=== PATIENT | male | born 1960 | race Caucasian/White ===

== ENCOUNTER 2020-02-21 10:09 | Inpatient (IN) | payer BC ==
[2020-02-21] MEDS ORDERED: Propofol 1,000 MG/100 ML VIAL IV ONE (10:19)
[2020-02-21 10:30] LABS: #Lymphocytes 1.4 thou/uL (1.20-3.40); #Neutrophils 7.8 thou/uL (1.40-6.50); %Basophils 0.2 % (0.0-1.0); %Eosinophils 0.2 % (0.0-10.0); %Lymphocytes 13.6 % (21.0-51.0); %Monocytes 9.8 % (0.0-10.0); %Neutrophils 76.2 % (42.0-75.0); Hemoglobin 14.1 g/dL (14.0-18.0); INR-International Normal Ratio 1.1; Mean Corpuscular HGB CONC 32.3 g/dL (32.0-36.0); Mean Corpuscular Hemoglobin 33.1 pg (27.0-31.0); Mean Platelet Volume 6.7 fL (7.4-10.4); Platelet Count 205 thou/uL (130-400); Prothrombin Time 14.2 sec (12.0-14.7); RBC Distribution Width 11.6 % (11.5-14.5); Red Blood Cell (RBC) Count 4.27 mill/uL (4.70-6.10); White Blood Cell (WBC) Count 10.2 thou/uL (4.8-10.8)
[2020-02-21] MEDS ORDERED: Multivitamins, Adult 10 ML, Thiamine HCl 100 MG, Folic Acid 1 MG in Dextrose 5 %-0.45 %... IV SCH (10:30)
[2020-02-21] MEDS ORDERED: fentaNYL Citrate/PF 2,000 MCG in Sodium Chloride 0.9% 60 ML IV SCH ×2 (10:30→12:15)
[2020-02-21 10:48] LABS: ALT (SGPT) 25 U/L (8-55); AST (SGOT) 99 U/L (5-34); Acetaminophen Less than 6.0 mcg/mL (10.0-30.0); Albumin 4.5 g/dL (3.5-5.0); Alcohol 26 mg/dL (Less than 10); Alkaline Phosphatase 104 U/L (40-110); Anion Gap 35 mmol/L (10-20); BUN (Urea Nitrogen) 11 mg/dL (8.4-25.7); Bilirubin, Total 1.1 mg/dL (0.2-1.2); Calc. Creatinine Clearance 0 mL/min (70-130); Calcium 9.4 mg/dL (7.8-10.44); Carbon Dioxide 11 mmol/L (22-29); Chloride 103 mmol/L (98-107); Globulin 3.4 g/dL (2.4-3.5); Potassium 3.6 mmol/L (3.5-5.1); Protein, Total 7.9 g/dL (6.0-8.3); Salicylate Less than 8.0 mg/dL (15.0-30.0); Sodium 145 mmol/L (136-145)
[2020-02-21 10:50] LABS: Actual Bicarbonate (HCO3a) 11.4 mEq/L (22-28); CO2 Tension 39.7 mmHg (35.0-45.0); Calcium, Ionized (arterial) 1.17 mmol/L (1.12-1.30); Carboxyhemoglobin (COHb) 0.5 gm% (0.0-3.0); Hemoglobin (Hb) 14.1 g/dL (14.0-18.0); O2 Tension (PaO2), arterial 195.5 mmHg (> 80.0); Potassium - ABG Lab 4.09 mmol/L (3.70-5.30)
--- NOTE | 2020-02-21 10:50 | RAD ---
EXAM: CHEST ONE VIEW HISTORY: Post seizure and fall with laceration to head. Patient intubated. COMPARISON: None FINDINGS: Endotracheal tube is noted in place with the tip overlying the T2-3 level and well above the level of the yao. Nasogastric tube is noted in place which courses into the abdomen, the tip is not imaged. The cardiac silhouette and pulmonary vasculature are within normal limits. Calcified granulom a seen in the right midlung zone. Lungs are otherwise clear without pneumothorax or pleural effusion. Osseous structures have a normal appearance, and no fracture is appreciated. There does benny ear to be a remote left lateral rib fracture involving the left sixth rib. IMPRESSION: 1. Endotracheal tube and nasogastric tubes in place. 2. No acute cardiopulmonary process.
[2020-02-21 10:51] LABS: Glucose 159 mg/dL (70-105)
[2020-02-21 10:52] LABS: ALV-art Gradient 111.375 mmHg (0-20); Puncture Site LRA; pH, Arterial 7.08 (7.35-7.45)
[2020-02-21] MEDS ORDERED: Sodium Bicarb 50 MEQ/50 ML Abboject 8.4% SYRINGE ONE ×2 (11:01→12:24)
[2020-02-21 11:15] LABS: Amphetamine Not Detected (NotDetected); Barbiturates Screen Not Detected (NotDetected); Benzodiazepine Screen Not Detected (NotDetected); Cocaine Metabolite Screen Not Detected (NotDetected); Medtox Control Line Valid? VALID (VALID); Medtox Reader # READER 1; Methadone Not Detected (NotDetected); Methamphetamine Not Detected (NotDetected); Opiate Screen Not Detected (NotDetected); Oxycodone Screen Not Detected (NotDetected); Phencyclidine (PCP) Not Detected (NotDetected); THC/Cannabinoid Screen Not Detected (NotDetected); Tricyclic Screen Not Detected (NotDetected)
--- NOTE | 2020-02-21 11:32 | CT ---
CT HEAD WITHOUT IV CONTRAST COMPARISON: None HISTORY: Fall from standing position. Seizure. TECHNIQUE: Axial CT imaging at 5 mm intervals from vertex through skull base without contrast FINDINGS: There is increased density seen within the left cerebral sulci involving the left frontal lobe and le ft parietal lobe compatible with subarachnoid hemorrhage. There is also evidence of increased density in a subdural location along the inner table of left frontal bone as well as the squamosal po rtion of left temporal bone compatible with subdural hemorrhage which measures approximately 3 mm in greatest transverse dimension at the level of the squamosal portion left temporal bone and approxi mately 4 mm involving the left anterior frontal region. There is a low-attenuation area along the inner table of the anterior right frontal bone. This may re present area of dural thickening; although, trace subdural hemorrhage would be difficult to entirely exclude. There is no evidence of an acute infarction, mass effect, or midline shift. No intraventricular hemo rrhage or hydrocephalus is present. There is mild cerebral and cerebellar volume loss. Skull base has a normal CT appearance. Visualized paranasal sinuses and mastoid air cells are clear. Osseous structures appear intact.No depressed calvarial fracture is seen. There is slight irregularit y of the visualized anterior nasal bone which may represent an indeterminate age nasal bone fracture. Endotracheal and orogastric tubes are noted in place. There is opacification of nasal passages with f luid in the region of the nasopharynx likely related to intubation. There is right parietal scalp soft tissue swelling with overlying infiltrate suggesting associated la ceration. IMPRESSION: 1. Subarachnoid hemorrhage left cerebral hemisphere in addition to small left subdural hemorrhage. 2. Right parietal scalp hematoma and laceration with skin clips present. 3. Above findings discussed with Dr. Angela in the emergency department on 02/21/2020 at 1126 greg rs.
[2020-02-21] MEDS ORDERED: niCARdipine 20MG In NaCl 20 MG/200 ML BAG ONE (11:39)
[2020-02-21 11:40] LABS: SARS-CoV-2 NAA Rapid Test Not Detected (NotDetected)
--- NOTE | 2020-02-21 11:42 | CT ---
CT Cervical Spine WO Con History: Fall. Seizure Comparison: Reference is made to brain CT same day Findings: Occipital condyles are intact. The odontoid process is intact. No acute traumatic facet roxann nt widening. Chronic appearing superior endplate height loss of C4 and T2. No acute cervical spine fracture or mal alignment. Visualized upper ribs are intact. Transverse processes are intact. Spinous processes are intact. Impression: No acute cervical spine fracture or malalignment.
[2020-02-21 11:47] LABS: Bilirubin Negative (Negative); Blood, Urine 2+ (Negative); Clarity Turbid (Clear); Glucose, Urine (Dipstick) Normal (Negative); Ketone, Urine 40 mg/dL (Negative); Leukocyte Negative Leu/uL (Negative); Nitrite Negative (Negative); Protein, Urine (Dipstick) 300 mg/dL (Neg-Trace); Specific Gravity, Urine 1.022 (1.002-1.036); Squamous Epithelial 0-3 HPF (0-3); Urobilinogen Normal mg/dL (Less than 2); WBC/HPF None Seen HPF (0-3)
[2020-02-21] MEDS ORDERED: Ondansetron PF 4 MG/2 ML Vial IVP PRN (11:47)
[2020-02-21] MEDS ORDERED: Dextrose 5% in Water 1,000 ML IV PRN (11:47)
[2020-02-21] MEDS ORDERED: hydrALAZINE 20 MG/ML VIAL SLOW IVP PRN (11:47)
[2020-02-21] MEDS ORDERED: Dextrose 50% Abboject 50 ML SYRINGE SLOW IVP PRN (11:47)
[2020-02-21] MEDS ORDERED: Insulin Regular 300 UNITS/3 ML VIAL SC PRN ×2 (11:47)
[2020-02-21] MEDS ORDERED: levETIRAcetam in NS 100 ML ONE (11:48)
[2020-02-21 11:56] LABS: Bacteria/HPF 1+ HPF (None Seen)
[2020-02-21] MEDS ORDERED: levETIRAcetam 500 MG/100 ML PREMIX BAG ONE (11:58)
[2020-02-21] MEDS ORDERED: Ventilator Sedation Protocol 1 EACH FS SCH (12:00)
[2020-02-21 12:05] LABS: Lactic Acid 8.9 mmol/L (0.5-2.2)
[2020-02-21] MEDS ORDERED: Lorazepam 2 MG/ML VIAL SLOW IVP PRN (12:15)
[2020-02-21] MEDS ORDERED: Propofol BOLUS 1,000 MG/100 ML VIAL IV PRN (12:15)
[2020-02-21] MEDS ORDERED: DISCONTINUE PREVIOUS NARCOTIC PAIN MEDICATIONS AND BENZODIAZEPINES FS SCH (12:15)
[2020-02-21] MEDS ORDERED: Fentanyl BOLUS 250 ML IVPB PRN (12:15)
[2020-02-21] MEDS ORDERED: Morphine 2 MG/ML VIAL SLOW IVP PRN (12:15)
[2020-02-21 12:42] LABS: Magnesium 1.7 mg/dL (1.6-2.6); Phosphorus 5.2 mg/dL (2.3-4.7)
--- NOTE | 2020-02-21 12:51 | HP ---
TRAUMA SURGEON: Jacob Roque MD CONSULTING PHYSICIAN: Owen Smith MD HISTORY OF PRESENT ILLNESS: The patient is a 59-year-old male, who presented to the emergency department after a fall at work. The patient reportedly had a seizure. Upon evaluation, he had a posterior head laceration, which was stapled and a pressure dressing was placed. Hemostasis was achieved and the patient went to the CT scanner, which demonstrated he had traumatic subarachnoid and subdural hemorrhages. The patient had received Ativan en route from EMS with a GCS of 7 reported to the emergency physician. For that reason, the patient was intubated on arrival. Upon my evaluation, the patient is moving bilateral upper and lower extremities when he is agitated. Pupils are equal, round, and reactive to light bilaterally. The only history that we know is that the patient has a history of seizures when his blood alcohol level gets too low, he is a daily drinker. REVIEW OF SYSTEMS: Unable to complete. 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 Otherwise, unable to complete. PAST SURGICAL HISTORY: Unable to complete. SOCIAL HISTORY: Unable to complete. MEDICATIONS: Unknown. ALLERGIES: UNKNOWN. PHYSICAL EXAMINATION: VITAL SIGNS: Temperature 97.5, pulse 107, respirations 22, oxygen saturation 100% on the ventilator, and blood pressure 121/82. PRIMARY SURVEY: Airway intact. The patient is intubated and moving oxygen appropriately. Equal breath sounds bilaterally. 2+ pulses in the bilateral radials, femorals, and DPs. GCS is eyes 1, verbal 1T, motor 5, for a total of 7T. The patient has a posterior head laceration with suman in place and pressure dressing. This was left in place. Bleeding is controlled. SECONDARY SURVEY: HEAD: Normocephalic. No gross palpable skull deformities. He does have a posterior head laceration with pressure dressing in place. EYES: Pupils 3 to 2, equal, round, and reactive to light bilaterally. ENT: No signs of trauma. C-SPINE: C-collar is in place. No signs of trauma. CHEST: Nontender. No crepitus. No abrasions or ecchymosis noted. Equal chest movement. PELVIS: Stable to palpation. RECTAL: Deferred. GENITOURINARY: Normal external genitalia. Tovar in place with yellow urine in bag. EXTREMITIES: No gross deformities. No abrasions or ecchymosis noted. 2+ pulses in bilateral radials, femorals, and DPs. BACK/SPINE: No signs of trauma. NEURO: The patient is intubated and sedated, but moves all extremities. He has purposeful movement, reaching for the tube intermittently. LABORATORY FINDINGS: White count 10.2, hemoglobin 14.1, hematocrit 43.7, and platelets 205. INR 1.1, PTT 33.0. Sodium 145, potassium 3.6, chloride 105, bicarb 11, BUN 11, creatinine 0.78, and glucose 159. Lactic acid greater than 13.4 followup 1 hour later is 8.9. Total bilirubin 1.1, . Troponin is less than 0.010. Lipase 65. Prolactin 36.39. ABG demonstrates a pH of 7.08, CO2 of 39.7, , base excess -18.0, bicarb 11.4. Urine drug screen is negative. Plasma alcohol is 26. DIAGNOSTIC STUDIES: CT scan of the brain demonstrates subarachnoid hemorrhage with left cerebral hemisphere in addition to left subdural hemorrhage. Right parietal scalp hematoma and laceration with skin clip present. CT of the C-spine demonstrates no acute cervical spinal fracture or malalignment. Chest x-ray demonstrates endotracheal tube and nasogastric tube in place. No acute cardiopulmonary process. ASSESSMENT: 1. Status post seizure and fall from standing. 2. Subarachnoid hemorrhage, left cerebral hemisphere and small left subdural hemorrhage. 3. Posterior scalp laceration. 4. Metabolic acidosis, Lactic acidosis. 5. Urinary tract infection. PLAN: The patient will be admitted to the Trauma Service. Consult neurosurgery. He is intubated and sedated. He will go to the CCU. We will complete q.1 hour neuro checks. Head of the bed at [address] in the morning unless otherwise indicated. The patient to receive 2 amps of bicarb in the emergency department. Lactic acid is starting to trend down. We will repeat lactic acid and ABG later today. Dr. Smith has been consulted. Goal systolic blood pressure less than 150. This patient was discussed with Dr. Roque before this dictation. Job ID: [id number] [facility]
[2020-02-21] MEDS ORDERED: Potassium Chloride 10 MEQ/100 ML PREMIX BAG IVPB SCH (13:15)
[2020-02-21] MEDS ORDERED: Magnesium 2 GM/50 ML 2 GM in Premix Bag 1 BAG IVPB SCH (13:15)
[2020-02-21] MEDS: Propofol 1,000 MG/100 ML VIAL IV PRN ×3 (13:53→23:38)
[2020-02-21] MEDS: Ciprofloxacin Lactate/D5W 200 MG in Premix Bag 1 BAG IVPB SCH (13:53)
[2020-02-21] MEDS: Oxazepam 10 MG CAP PO SCH ×3 (13:54→22:23)
[2020-02-21] MEDS: Acetaminophen 325 MG TAB PO SCH ×3 (14:01→23:32)
[2020-02-21 14:11] LABS: Lactic Acid 1.2 mmol/L (0.5-2.2)
[2020-02-21] MEDS: Sodium Chloride 0.9% 1,000 ML IV SCH ×2 (14:23→20:25)
[2020-02-21 14:37] LABS: Actual Bicarbonate (HCO3a) 24.9 mEq/L (22-28); Base Excess (BEa) 1.8 mEq/L (-2.0 to +3.0); CO2 Tension 33.7 mmHg (35.0-45.0); Calcium, Ionized (arterial) 1.08 mmol/L (1.12-1.30); Carboxyhemoglobin (COHb) 0.2 gm% (0.0-3.0); Hemoglobin (Hb) 11.7 g/dL (14.0-18.0); O2 Tension (PaO2), arterial 142.4 mmHg (> 80.0); Potassium - ABG Lab 3.43 mmol/L (3.70-5.30); pH, Arterial 7.49 (7.35-7.45)
[2020-02-21 14:39] LABS: ALV-art Gradient 100.675 mmHg (0-20); Puncture Site LRA
[2020-02-21] MEDS ORDERED: Calcium Chloride 13.6 MEQ in Sodium Chloride 0.9% 100 ML IVPB SCH (15:15)
--- NOTE | 2020-02-21 17:37 | PRG ---
DATE OF SERVICE: 02/21/2020 Please see Catalina Davis's Luis Felipe borges P for full details. The patient is a 59-year-old, sustained fall, subarachnoid hemorrhage after a seizure. He also has small left subdural. He is intubated in the ICU and Neurosurgery recommends a followup CT of the head in the morning. His lactic acidosis is improving. ASSESSMENT: Fall trauma, subarachnoid and subdural hematoma. Neurosurgery is seeing. PLAN: Continue ventilator. We will keep him on the ventilator for now. We will continue to follow neuro exams. Job ID: [id number]
[2020-02-21] MEDS: levETIRAcetam in NS 500 MG in Premix Bag 1 BAG IVPB SCH (20:10)
[2020-02-21] MEDS: Famotidine 20 MG TAB PO SCH (20:10)
[2020-02-21] MEDS ORDERED: Oxazepam 10 MG CAP PO SCH (22:00)
[2020-02-22] MEDS: Ciprofloxacin Lactate/D5W 200 MG in Premix Bag 1 BAG IVPB SCH ×2 (00:08→13:47)
[2020-02-22] MEDS ORDERED: Dextrose 50% Abboject 50 ML SYRINGE SLOW IVP SCH (00:45)
--- NOTE | 2020-02-22 02:09 | PRG ---
DATE OF SERVICE: 02/21/2020 SUBJECTIVE: The patient was seen during evening rounds in the critical care unit. The patient is awake, alert, and restless. The patient is on full ventilatory support and sedated with fentanyl 150 mcg and propofol of 30. The patient does have some fine tremors and his temperature is 99.9. The patient's urinary output is starting to drop some. His vital signs are stable. I did speak to the patient's and updated her. The patient reports only other history is anxiety and depression in which he takes bupropion. We will restart patient's home bupropion. Continue full mechanical ventilatory support and sedation overnight. We will give a dose of albumin and his urinary output has dropped some. The patient did have a low blood sugar of 66. 12.5 g of D50 was given with improvement. We will continue to monitor to ensure patient's blood sugar is not too low or too high due to his head injury. Repeat head CT per Neurosurgery in the morning. Repeat labs in the morning. We will increase the patient's Serax dose as he is anxious with tremors. Job ID: [id number]
[2020-02-22] MEDS: Acetaminophen 325 MG TAB PO SCH ×3 (05:26→16:20)
[2020-02-22] MEDS: Oxazepam 10 MG CAP PO SCH ×3 (05:27→21:45)
[2020-02-22 07:20] LABS: Actual Bicarbonate (HCO3a) 23.3 mEq/L (22-28); Base Excess (BEa) 1.4 mEq/L (-2.0 to +3.0); CO2 Tension 27.9 mmHg (35.0-45.0); Calcium, Ionized (arterial) 1.09 mmol/L (1.12-1.30); Carboxyhemoglobin (COHb) 0.3 gm% (0.0-3.0); Hemoglobin (Hb) 10.6 g/dL (14.0-18.0); O2 Tension (PaO2), arterial 131.3 mmHg (> 80.0); Potassium - ABG Lab 2.73 mmol/L (3.70-5.30); pH, Arterial 7.54 (7.35-7.45)
[2020-02-22 07:21] LABS: Puncture Site LRA
[2020-02-22 07:22] LABS: ALV-art Gradient 83.375 mmHg (0-20)
[2020-02-22] MEDS: Sodium Chloride 0.9% 1,000 ML IV SCH ×3 (07:26→20:04)
[2020-02-22 07:27] LABS: Chloride 105 mmol/L (98-107); Sodium 140 mmol/L (136-145)
[2020-02-22 07:28] LABS: Glucose 76 mg/dL (70-105)
--- NOTE | 2020-02-22 07:28 | CT ---
PRELIMINARY REPORT/[facility]/EMERGENCY AFTER HOURS EXAM EXAM: CT Head Without Intravenous Contrast. CLINICAL HISTORY: F/U TECHNIQUE: Axial computed tomography images of the head/brain without intravenous contrast. 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 Small amount of subarachnoid hemorrhage is visualized in the right parietal lobe which was not present on the prior study. There is a 4 mm subdural hematoma overlying the right frontal and temporal lobes which is not appreci ated on the prior study. There is a focus of hyperdensity in the occipital horns of the bilateral lateral ventricles which lik herminia are from redistribution hemorrhage. There is a 1.3 cm focus of hemorrhage in the left inferior frontal lobe with adjacent hypodensity whi ch is concerning for intraparenchymal hemorrhage with adjacent edema, not visualized on the prior study There is an additional focus of hemorrhage at the anterior inferior right frontal lobe which may or f ocal subdural hematoma VENTRICLES: No hydrocephalus. ORBITS: The orbits are unremarkable. SINUSES AND MASTOIDS: Fluid in the sphenoid and maxillary sinuses as well as within the nasal cavity. SOFT TISSUES: No significant facial or scalp soft tissue swelling evident. No radiopaque foreign body is seen. BONES: Age indeterminate nasal bone fractures. IMPRESSION: Subarachnoid hemorrhage in the left parietal, frontal and temporal lobes, similar to prior, although slightly decreased in the sylvian prior. Small amount of subarachnoid hemorrhage is visualized in the right parietal lobe which was not present on the prior study. 4 mm subdural hematoma overlying the right frontal and temporal lobes which is not appreciated on the prior study. 1.3 cm focus of hemorrhage in the left inferior frontal lobe with adjacent hypodensity which is raisa rning for intraparenchymal hemorrhage with adjacent edema, not visualized on the prior study Additional focus of hemorrhage at the anterior inferior right frontal lobe which may represent a foca l subdural hematoma, not well visualized in the prior study. No hydrocephalus. Foci of hyperdensity in the posterior aspect of the occipital horns likely represe nts redistribution of subarachnoid hemorrhage. ELECTRONICALLY SIGNED BY: Charley Bravo MD Feb 22, 2020 4:49:59 AM BUFFING AND SUEDING MACHINE OPERATOR This report is intended for review by the ordering physician only, in accordance of law. If you recei ve this report in error, please call [facility] at [phone]. FINAL REPORT Final interpretation Head CT without contrast: 02/22/2020 COMPARISON: 02/21/2020. HISTORY: Reevaluate posttraumatic change, intracranial hemorrhage, recent trauma. FINDINGS: I agree with the preliminary report. There is no displaced calvarial fracture seen. There i s a fracture of the osseous nasal septum. Nasal bone fractures are noted, only partially visualized on this exam. New subarachnoid blood noted in the posterior right frontal region. New very small volume hemorrhage within the occipital horn of bilateral lateral ventricles. New minimal subdural blood layering on the tentorium on the right and seen along the course of the interhemispheric fissure posteriorly. Rel atively stable left-sided subarachnoid blood in the parietal and frontal regions. New tiny posterior left parietal occipital subdural hematoma. New intra-axial hemorrhage in the inferior later al posterior left frontal lobe on image 13 suggesting interval development of hemorrhagic contusion. New inferior right frontal lobe 1 cm hemorrhage suggesting a new small hemorrhagic contusi on in the right frontal region. New small volume subdural hematoma in the anterior medial aspect of the left middle cranial fossa. IMPRESSION: Intra-axial and extra-axial hemorrhage as detailed above, worsened since the prior examin ation. Findings include new areas of hemorrhagic contusion in the frontal lobes bilaterally. Continued follow-up advised. Code QA Transcribed Date/Time: 02/22/2020 8:42 AM
[2020-02-22 07:29] LABS: Anion Gap 14 mmol/L (10-20); Carbon Dioxide 24 mmol/L (22-29)
[2020-02-22 07:30] LABS: Potassium 2.8 mmol/L (3.5-5.1)
[2020-02-22 07:31] LABS: Calc. Creatinine Clearance 149 mL/min (70-130)
[2020-02-22 07:32] LABS: BUN (Urea Nitrogen) 8 mg/dL (8.4-25.7)
[2020-02-22 07:33] LABS: Magnesium 1.3 mg/dL (1.6-2.6)
[2020-02-22] MEDS: Multivitamin W/ Minerals 1 TAB PO SCH (08:07)
[2020-02-22] MEDS: Bupropion 150 MG XL TAB PO SCH (08:07)
[2020-02-22] MEDS: levETIRAcetam in NS 500 MG in Premix Bag 1 BAG IVPB SCH ×2 (08:07→20:04)
[2020-02-22] MEDS: Folic Acid 1 MG TAB PO SCH (08:07)
[2020-02-22] MEDS: Thiamine 100 MG TAB PO SCH (08:07)
[2020-02-22] MEDS: Famotidine 20 MG TAB PO SCH ×2 (08:07→20:03)
[2020-02-22] MEDS ORDERED: Magnesium 2 GM/50 ML 2 GM in Premix Bag 1 BAG IVPB SCH (08:15)
[2020-02-22 08:52] LABS: #Eosinphils 0.1 thou/uL (0.0-0.7); #Lymphocytes 0.9 thou/uL (1.20-3.40); #Monocytes 0.5 thou/uL (0.11-0.59); #Neutrophils 2.6 thou/uL (1.40-6.50); %Basophils 0.3 % (0.0-1.0); %Eosinophils 1.8 % (0.0-10.0); %Lymphocytes 21.8 % (21.0-51.0); %Neutrophils 65.1 % (42.0-75.0); Hemoglobin 10.4 g/dL (14.0-18.0); MDiff Complete? YES; Mean Corpuscular HGB CONC 34.6 g/dL (32.0-36.0); Mean Corpuscular Volume 98.5 fL (78.0-98.0); Mean Platelet Volume 6.6 fL (7.4-10.4); Platelet Count 110 thou/uL (130-400); Platelet Morphology Comment Appears Decreased; Polychromasia SLIGHT = 2-3 cells (100X) (0-2/hpf); RBC Distribution Width 11.4 % (11.5-14.5); Red Blood Cell (RBC) Count 3.05 mill/uL (4.70-6.10)
--- NOTE | 2020-02-22 09:03 | RAD ---
PORTABLE CHEST: COMPARISON: Prior day's study. HISTORY: Respiratory distress. FINDINGS: Endotracheal tube is above the level of the thoracic inlet. It should be advanced. NG tube is below the hemidiaphragm. Heart and mediastinal structures are within normal limits. The lungs appear oma ar of infiltrative process. IMPRESSION: Endotracheal tube at the level of the thoracic inlet needs to be advanced. The finding was discussed with the patient's nurse, Sugey, who said the endotracheal tube had alrea dy been advanced. CODE CR POS: OFF
[2020-02-22] MEDS: Potassium Chloride 20 MEQ in Premix Bag 1 BAG IVPB SCH ×2 (09:50→12:30)
[2020-02-22] MEDS ORDERED: Lorazepam 2 MG/ML VIAL SLOW IVP SCH (10:30)
--- NOTE | 2020-02-22 10:54 | CON ---
DATE OF CONSULTATION: 02/22/2020 Mr. Sanchez is a 59-year-old gentleman with a reported history of seizures, who presented yesterday with seizure-like activity and fall with closed head injury. The patient had a right occipital scalp laceration that was repaired with suman in the ER. He was postictal upon his ER arrival, with a reported GCS of 7. He was reportedly moving his extremities, but was nonverbal and not opening his eyes. He was intubated. CT of the brain demonstrated left-sided subarachnoid hemorrhage, as well as frontal subdural hematoma. This was determined to be likely traumatic in nature with a counter coup distribution. There is no associated skull fracture. The patient was admitted to the critical care unit for close neurologic monitoring and ventilator management This morning, the patient appeared to be resting comfortably in bed. He opens his eyes spontaneously and follows commands throughout all extremities. He is able to squeeze my fingers with both his hands, as well as wiggle his toes on both feet. He remains intubated and on light sedation. Pupils were 2 mm and equal bilaterally. He tracked my movements about the room with his eyes. Repeat CT of the brain this morning demonstrated some blossoming of his subarachnoid hemorrhage and subdural hematoma, but overall his CT remains stable. His neurologic exam is reassuring. The patient will likely be extubated today. Please call for any neurologic changes or other concerns. This was a 30-minute initial visit, in which greater than 50% of the time was spent in review of records, review of imaging, evaluation, examination, and formulation of plan. The remaining time was spent in counseling and coordination of care. Job ID: [id number] [facility]
[2020-02-22] MEDS ORDERED: Potassium Phosphate 30 MMOL in Sodium Chloride 0.9% 250 ML 250 ML IVPB SCH (13:30)
--- NOTE | 2020-02-22 15:55 | PRG ---
DATE OF SERVICE: 02/22/2020 SUBJECTIVE: Mr. Sanchez is a 59-year-old man, who is post injury day #1, status post ground level fall after a seizure activity. The patient sustained acute traumatic brain injury with subarachnoid hemorrhage as well as left convexity subdural hematoma. Posterior scalp laceration is repaired and not actively bleeding. The patient was evaluated today on mechanical ventilator support. Sedation was off. The patient moved all extremities and followed commands with a Cornelio Coma Scale of 11T. Urinary output is adequate for the patient's age and weight. He has had no seizure activity since admission. OBJECTIVE: VITAL SIGNS: This morning include blood pressure 117/77, pulse 76, respiratory rate 22. Maximum temperature is 99.9 degrees Fahrenheit, oxygen saturation 100% on FiO2 of 40% on mechanical ventilator support. HEENT: Pupils are equal, round, and reactive to light bilaterally. NECK: He has no jugular venous distention noted. HEART: Reveals regular rate and rhythm. No murmurs or gallops auscultated. LUNGS: Clear to auscultation bilaterally. Breathing, regular and nonlabored. ABDOMEN: Soft, nontender, and nondistended. EXTREMITIES: Reveal 2+ radial and pedal pulses bilaterally. No ankle edema is present. NEUROLOGIC: Reveals no focal deficits present. LABORATORY FINDINGS: Today include a CBC with 4000 white blood cells, hemoglobin and hematocrit are 10.4 and 30.0 respectively. Platelet count is 110,000. Metabolic profile; sodium 140, potassium 2.8, chloride is 105, bicarb is 24, BUN 8, creatinine is 0.66, glucose is 106, magnesium is 1.3, and phosphorus is 2.0. Repeat brain CT scan this morning reveals essentially stable acute intracranial hemorrhages. IMPRESSION: 1. Post injury day #1 status post ground level fall. 2. 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 3. Acute hypomagnesemia. 4. Acute hypokalemia. 5. Acute hypophosphatemia. 6. Acute onset epileptic seizure likely related to chronic ethanol abuse history. 7. Acute Respiratory Failure, improved PLAN: 1. Correct abnormal electrolytes. 2. The patient is weaned and extubated accordingly and we will continue with pulmonary toilet. 3. Initiate activity per Physical and Occupational therapy. We will ask speech and language pathologist to evaluate the patient for both swallow and cognitive function. 4. We will ask Neurology to evaluate the patient for this acute onset seizure activity given this patient's chronic ethanol history. Above findings and plan discussed with the patient's at bedside, who indicates understanding information provided. I have answered her questions. Job ID: [id number] [facility]
[2020-02-22] MEDS: cloNIDine 0.2 MG TAB PO SCH ×2 (16:20→21:45)
[2020-02-23] MEDS: Acetaminophen 325 MG TAB PO SCH ×4 (00:36→18:44)
[2020-02-23] MEDS: Ciprofloxacin Lactate/D5W 200 MG in Premix Bag 1 BAG IVPB SCH ×2 (00:50→18:59)
[2020-02-23] MEDS: cloNIDine 0.2 MG TAB PO SCH ×4 (03:39→21:31)
[2020-02-23] MEDS: Oxazepam 10 MG CAP PO SCH ×3 (05:30→18:44)
[2020-02-23] MEDS: Sodium Chloride 0.9% 1,000 ML IV SCH (05:37)
[2020-02-23 06:29] LABS: Band 9 % (5-11); Hemoglobin 11.2 g/dL (14.0-18.0); Lymphocytes 15 % (21-51); MDiff Complete? YES; Mean Corpuscular Hemoglobin 32.3 pg (27.0-31.0); Mean Corpuscular Volume 97.8 fL (78.0-98.0); Monocytes 10 % (0-10); Neutrophil 65 % (42-75); Platelet Count 110 thou/uL (130-400); Platelet Morphology Comment Appears Decreased; RBC Distribution Width 11.2 % (11.5-14.5); Red Blood Cell (RBC) Count 3.47 mill/uL (4.70-6.10); White Blood Cell (WBC) Count 7.6 thou/uL (4.8-10.8)
[2020-02-23 07:07] LABS: Anion Gap 17 mmol/L (10-20); BUN (Urea Nitrogen) 7 mg/dL (8.4-25.7); Calc. Creatinine Clearance 171 mL/min (70-130); Carbon Dioxide 20 mmol/L (22-29); Chloride 103 mmol/L (98-107); Glucose 106 mg/dL (70-105); Magnesium 1.5 mg/dL (1.6-2.6); Phosphorus 2.7 mg/dL (2.3-4.7); Potassium 3.6 mmol/L (3.5-5.1); Sodium 136 mmol/L (136-145)
[2020-02-23] MEDS ORDERED: Potassium Phosphate 30 MMOL, Magnesium Sulfate 4 GM in Sodium Chloride 0.9% 250 ML 250 ML IVPB SCH (09:00)
[2020-02-23] MEDS ORDERED: Furosemide 20 MG/2 ML VIAL SLOW IVP SCH (09:00)
--- NOTE | 2020-02-23 09:11 | RAD ---
CHEST 1 VIEW: Date: 02/23/2020 INDICATION: History of respiratory failure and tracheostomy. COMPARISON: Prior exam dated 02/22/2020. FINDINGS: Patient has been intervally extubated. Tracheostomy tube is not identified. There is worsening air sp patricia disease of the right lower lobe. Cardiomegaly with present. There is worsening pulmonary vascular congestion. There is a small right pleural effusion. No pneumothorax is evident. IMPRESSION: 1. Cardiomegaly with pulmonary vascular congestion and small right pleural effusion. Recommend corre lation for volume overload or CHF. 2. Increased air space opacity in the right lower lobe may reflect edema or pneumonia. 3. Interval extubation of gastric catheter. 4. Tracheostomy tube is not seen. POS: BH
[2020-02-23] MEDS: Multivitamin W/ Minerals 1 TAB PO SCH (10:23)
[2020-02-23] MEDS: Folic Acid 1 MG TAB PO SCH (10:23)
[2020-02-23] MEDS: levETIRAcetam 500 MG TAB PO SCH ×2 (10:23→20:16)
[2020-02-23] MEDS: Thiamine 100 MG TAB PO SCH (10:24)
[2020-02-23] MEDS: levETIRAcetam in NS 500 MG in Premix Bag 1 BAG IVPB SCH (10:51)
[2020-02-23] MEDS: Bupropion 150 MG XL TAB PO SCH (10:51)
--- NOTE | 2020-02-23 12:21 | PRG ---
DATE OF SERVICE: 02/23/2020 This is a 30-minute initial hospital visit note, in which 30 minutes were spent reviewing the imaging record, evaluation, examination of the patient, formulation of plan. Greater than 50% time was spent in counseling on Jani Sanchez. CHIEF COMPLAINT: Seizure, scattered traumatic multi-compartmental hemorrhage. SUBJECTIVE: Mr. Sanchez is a 59-year-old man, who presented with a history of seizures. He was brought in 2 days ago with an occipital coup injury to his scalp, contrecoup injury throughout the frontal and temporal lobes, again subarachnoid hemorrhage along the left temporal and frontal region and acute subdural hematoma with no associated skull fracture. He is now convalesced to be neurologically intact. Head CT has been stable with slight blossoming, but otherwise he is doing well. He is on Keppra due to concern of seizure both in his remote and recent history. I would recommend followup with Neurology for his seizure disorder. We will arrange for repeat head CT from our standpoint in 1 month. DIAGNOSIS: Intracranial bleed, status post seizure. Job ID: [id number]
--- NOTE | 2020-02-23 17:57 | CON ---
DATE OF CONSULTATION: 02/23/2020 CONSULTING PHYSICIAN: Hospitalist Services. IMPRESSION: 1. Alcohol withdrawal seizure with questionable component related to his intracranial hemorrhaging. 2. History of alcoholism with ongoing mild delirium tremens. PLAN: 1. Continue Keppra for the next few months until the hemorrhages have time to resolve. 2. Office followup. HISTORY OF PRESENT ILLNESS: Mr. Sanchez is a 59-year-old gentleman who apparently fell from a ladder at work. He was witnessed to possibly have some type of seizure activity after he hit the ground. He was brought to the emergency room for evaluation. CT of the brain revealed evidence of subarachnoid, subdural, and intraparenchymal hemorrhage. He had Keppra started in the emergency room. His lab work was all unremarkable. He has not had any further seizures. PAST HISTORY: Otherwise unremarkable other than his alcohol abuse. FAMILY HISTORY: Noncontributory. SOCIAL HISTORY: No illicit drug use. MEDICATIONS: As per chart. REVIEW OF SYSTEMS: Ten-system review of systems is otherwise negative. PHYSICAL EXAMINATION: GENERAL: He is a well-nourished, middle-aged man, in no distress. VITAL SIGNS: Have been stable. He is afebrile. HEENT: Pupils are equal. Conjunctivae clear. Oropharynx clear. NECK: Supple. No lymphadenopathy. ABDOMEN: Soft and nontender. EXTREMITIES: No cyanosis or edema. SKIN: Clear. NEUROLOGIC: He was alert and cooperative. His speech is fluent and clear. He had difficulty recalling the name of the hospital, but he seemed to be oriented otherwise. He followed commands appropriately. Cranial nerves were intact. 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 There was no tremor or dysmetria of any significance noted. Gait was not tested. Sensation was intact to touch. SUMMARY: This is a middle-age man with intracranial hemorrhage secondary to trauma. He would be at increased risk for recurrent seizure secondary to this. I would continue current treatment plan. I will see him as an outpatient. Job ID: [id number]
[2020-02-23] MEDS ORDERED: RisperDAL M-TAB 1 MG TAB SL SCH (18:45)
[2020-02-23] MEDS ORDERED: Haloperidol Lactate 5 MG/ML VIAL SLOW IVP SCH (19:45)
--- NOTE | 2020-02-23 20:26 | PRG ---
DATE OF SERVICE: 02/23/2020 SUBJECTIVE: The patient is currently on the surgical floor. He was moved here yesterday from the critical care unit. He was admitted to the facility, status post ground level fall, which he sustained multiple intracranial hemorrhages. The patient also has significant history of alcohol abuse and seizures. It is unclear whether he has seizures related to his alcohol abuse or if this was related to trauma. The patient was evaluated today by Dr. Flood, who believes that the patient is at increased risk for seizures and would continue him on his antiseizure medicines. Otherwise, the patient began working with physical and occupational therapy today. Unfortunately, this evening, while I was on the surgical floor, the patient disconnected his IV and got up out of bed as he reports hallucinating, having another person in bed with him. He got out of bed and lost blood from his IV catheter and slipped and fell hitting his head. The nurses were able to get to him immediately, but as a cautionary measure, we did order a repeat head CT, that is currently pending. PHYSICAL EXAMINATION: VITAL SIGNS: Temperature is 98.1, heart rate 77, blood pressure 124/74, respirations 16, and oxygen saturation 97% on room air. GENERAL: The patient is resting in a wheelchair at the time of my most recent visit. His mental status appears to be the same as it was this morning. He did recall speaking with me this morning as he even brought it up that he recalled me talking to him this morning. HEENT: Head has a small contusion noted on his left forehead from his most recent fall, otherwise unremarkable. HEART: Regular rate and rhythm. LUNGS: Clear to auscultation bilaterally. ABDOMEN: Soft, nontender with active bowel sounds. EXTREMITIES: Neurovascularly intact x4. NEUROLOGIC: Cornelio Coma Scale is 14, -1 for some confusion. LABORATORY FINDINGS: White blood cell count 7.6, hemoglobin 11.2, hematocrit 33.9, platelets 110. Sodium 136, potassium 3.6, chloride 103, CO2 of 20, BUN 7, creatinine 0.59, glucose 106, magnesium 1.5, phosphorus 2.7. RADIOGRAPHS: AP chest x-ray shows cardiomegaly with pulmonary vascular congestion with small right pleural effusion, correlate for volume overload or CHF. CT of the brain is pending. ASSESSMENT: 1. Status post ground level fall, hospital day #2. 2. 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 3. Acute hypomagnesemia. PLAN: Plan will be to continue supportive care. Await CT results. We changed his Serax to q.6 hours. We will replace his magnesium. We will encourage physical and occupational therapy. Continue his seizure medicines and await placement decision. The patient was evaluated this morning with Dr. Fung on rounds. Job ID: [id number]
--- NOTE | 2020-02-23 21:02 | CT ---
EXAM: CT brain without contrast HISTORY: Fall with head trauma and left forehead contusion. Patient is on blood thinners. COMPARISON: 02/22/2020 TECHNIQUE: Multiple contiguous axial images were obtained and a CT of the brain without contrast. FINDINGS: Parenchymal contusions are seen in the bilateral frontal lobes and left temporal lobe which appears stable. Subarachnoid hemorrhage is again seen in the left cerebral hemisphere. This has slightly improved compared to the prior examination. The previously seen right-sided subarachnoid hem orrhage appears to have resolved. There is hyperdensity along the tentorium which may represent a small amount of blood along the tentorium. No intraventricular hemorrhage or hydrocephalus are seen. The calvarium and overlying soft tissues are unremarkable. The visualized paranasal sinuses and masto id air cells are well aerated. IMPRESSION: Evolving intracranial hemorrhage with improvement of the subarachnoid hemorrhage.
[2020-02-24] MEDS: Ciprofloxacin Lactate/D5W 200 MG in Premix Bag 1 BAG IVPB SCH (00:25)
[2020-02-24] MEDS: Acetaminophen 325 MG TAB PO SCH ×6 (00:25→22:19)
[2020-02-24] MEDS: Oxazepam 10 MG CAP PO SCH ×5 (00:25→22:20)
[2020-02-24] MEDS ORDERED: Oxazepam 10 MG CAP PO SCH (03:00)
[2020-02-24] MEDS: cloNIDine 0.2 MG TAB PO SCH ×4 (03:16→20:00)
[2020-02-24 03:50] LABS: #Lymphocytes 0.6 thou/uL (1.20-3.40); #Monocytes 0.9 thou/uL (0.11-0.59); #Neutrophils 7.6 thou/uL (1.40-6.50); %Eosinophils 0.5 % (0.0-10.0); %Lymphocytes 6.9 % (21.0-51.0); %Monocytes 9.4 % (0.0-10.0); %Neutrophils 83.2 % (42.0-75.0); Hemoglobin 11.5 g/dL (14.0-18.0); Mean Corpuscular HGB CONC 34.1 g/dL (32.0-36.0); Mean Corpuscular Hemoglobin 32.9 pg (27.0-31.0); Mean Corpuscular Volume 96.6 fL (78.0-98.0); Mean Platelet Volume 7.4 fL (7.4-10.4); Platelet Count 133 thou/uL (130-400); Red Blood Cell (RBC) Count 3.49 mill/uL (4.70-6.10); White Blood Cell (WBC) Count 9.2 thou/uL (4.8-10.8)
[2020-02-24 04:40] LABS: Anion Gap 20 mmol/L (10-20); BUN (Urea Nitrogen) 10 mg/dL (8.4-25.7); Calc. Creatinine Clearance 165 mL/min (70-130); Calcium 8.4 mg/dL (7.8-10.44); Carbon Dioxide 19 mmol/L (22-29); Chloride 102 mmol/L (98-107); Glucose 116 mg/dL (70-105); Magnesium 1.6 mg/dL (1.6-2.6); Phosphorus 1.7 mg/dL (2.3-4.7); Potassium 3.7 mmol/L (3.5-5.1); Sodium 137 mmol/L (136-145)
[2020-02-24] MEDS ORDERED: Potassium Phosphate 30 MMOL in Sodium Chloride 0.9% 250 ML 250 ML IVPB SCH (05:30)
[2020-02-24] MEDS ORDERED: Magnesium Sulfate 4 GM in Sodium Chloride 0.9% 250 ML 250 ML IVPB SCH (05:30)
[2020-02-24] MEDS: Multivitamin W/ Minerals 1 TAB PO SCH (08:32)
[2020-02-24] MEDS: Folic Acid 1 MG TAB PO SCH (08:32)
[2020-02-24] MEDS: levETIRAcetam 500 MG TAB PO SCH ×2 (08:32→20:02)
[2020-02-24] MEDS: Thiamine 100 MG TAB PO SCH (08:32)
[2020-02-24] MEDS ORDERED: RisperDAL M-TAB 1 MG TAB SL SCH (09:00)
--- NOTE | 2020-02-24 17:00 | PRG ---
DATE OF SERVICE: 02/24/2020 SUBJECTIVE: The patient was seen during morning rounds with Dr. Fung on the surgical floor. The patient is currently awake, confused, tremulous. He was admitted status post ground level fall, in which he sustained multiple intracranial hemorrhages. The patient has a significant history of alcohol abuse and having seizures with withdrawals. Last night, the patient disconnected his IV, got out of bed, slipped and fell, hitting his head. A repeat head CT showed no new injury. The patient does have some redness, swelling to his right elbow. Wound Care was consulted and reports that the area appears deep. The wound was packed with Iodoform dressing. OBJECTIVE: VITAL SIGNS: Temperature 97.8, pulse 85, respirations 20, SpO2 of 96% on room air, blood pressure 145/94. GENERAL: Middle-aged male, lying in hospital bed, confused and hallucinating. HEENT: Small contusion noted in left forehead. CARDIAC: Regular rate, regular rhythm. RESPIRATIONS: Even and nonlabored. EXTREMITIES: Moves all extremities, neurovascularly intact. NEUROLOGIC: E4, V4, M5. LABORATORY DATA: WBC 9.2, RBC 3.49, hemoglobin 11.5, hematocrit 33.7, platelets 133. Sodium 137, potassium 3.7, chloride 102, carbon dioxide 19, BUN 10, creatinine 0.61, estimated GFR greater than 90, glucose 113, phosphorus 1.7, magnesium 1.6. Prolactin 14.7. DIAGNOSTICS: No new diagnostics to review today. ASSESSMENT: 1. Status post ground level fall, hospital day #3. 2. 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 3. Altered mental status and hallucinating, likely due to alcohol withdrawal. 4. Delirium tremens. PLAN: Continue seizure precautions and fall precautions. Restrain as needed to protect the patient as needed. Continue supportive care. We will obtain an x-ray of the right elbow. Continue Serax for alcohol withdrawals. Replace electrolytes. Continue physical and occupational therapy. The patient is pending placement to inpatient rehab. The patient was evaluated by Dr. Fung during morning rounds. Job ID: [id number]
--- NOTE | 2020-02-24 17:01 | RAD ---
Radiograph right elbow 2 views: 02/24/2020 4:34 PM HISTORY: 59-year-old male status post fall. FINDINGS: At the base of a moderate sized enthesophyte involving the triceps tendon insertion site at the dorsa l surface of the olecranon process, there is irregularity and lucency, which is questionable for an acute fracture. Although no displaced fracture is identified elsewhere, at least a 3 view, or pref erably 4 view, of the elbow is recommended in general, for acute trauma, for better sensitivity in the detection of nondisplaced and minimally displaced fractures. There is gas lucency at the medial s oft tissues. IMPRESSION: 1.) Soft tissue laceration at medial aspect of elbow. 2) possible acute minimally displaced fracture at the base of enthesophyte arising from the dorsal giron rface of olecranon process.
--- NOTE | 2020-02-24 18:53 | RAD ---
RIGHT ELBOW THREE VIEWS: 02/24/20 INDICATION: History of fall with right elbow pain. COMPARISON: Prior exam dated 02/24/20 at 4:36 p.m. FINDINGS: There is soft tissue swelling overlying the posterior and medial aspect of the right elbow joint. The re is enthesopathic change off the olecranon with fracturing of the enthesophyte. No additional acute fracture is evident. No joint capsular distention is noted. IMPRESSION: Soft tissue swelling overlying the posterior olecranon with a fractured enthesophyte. POS: BH
[2020-02-24] MEDS ORDERED: Haloperidol Lactate 5 MG/ML VIAL SLOW IVP SCH ×2 (22:15→23:30)
[2020-02-25] MEDS: cloNIDine 0.2 MG TAB PO SCH ×4 (04:01→20:06)
[2020-02-25 04:50] VITALS: BMI 25.0
[2020-02-25] MEDS: Acetaminophen 325 MG TAB PO SCH ×4 (05:18→23:59)
[2020-02-25] MEDS: Oxazepam 10 MG CAP PO SCH ×3 (05:19→18:36)
[2020-02-25 05:43] LABS: #Eosinphils 0.1 thou/uL (0.0-0.7); #Lymphocytes 0.8 thou/uL (1.20-3.40); #Monocytes 1.6 thou/uL (0.11-0.59); #Neutrophils 8.9 thou/uL (1.40-6.50); %Basophils 0.3 % (0.0-1.0); %Eosinophils 0.6 % (0.0-10.0); %Lymphocytes 6.7 % (21.0-51.0); %Monocytes 13.7 % (0.0-10.0); %Neutrophils 78.7 % (42.0-75.0); Hemoglobin 11.8 g/dL (14.0-18.0); Mean Corpuscular HGB CONC 32.7 g/dL (32.0-36.0); Mean Corpuscular Hemoglobin 31.9 pg (27.0-31.0); Mean Corpuscular Volume 97.6 fL (78.0-98.0); Mean Platelet Volume 7.2 fL (7.4-10.4); Platelet Count 209 thou/uL (130-400); RBC Distribution Width 11.1 % (11.5-14.5); Red Blood Cell (RBC) Count 3.71 mill/uL (4.70-6.10); White Blood Cell (WBC) Count 11.3 thou/uL (4.8-10.8)
[2020-02-25 06:13] LABS: Anion Gap 23 mmol/L (10-20); BUN (Urea Nitrogen) 10 mg/dL (8.4-25.7); Calc. Creatinine Clearance 162 mL/min (70-130); Calcium 8.6 mg/dL (7.8-10.44); Carbon Dioxide 14 mmol/L (22-29); Chloride 104 mmol/L (98-107); Glucose 103 mg/dL (70-105); Magnesium 1.6 mg/dL (1.6-2.6); Phosphorus 2.8 mg/dL (2.3-4.7); Potassium 3.5 mmol/L (3.5-5.1); Sodium 137 mmol/L (136-145)
[2020-02-25] MEDS: Thiamine 100 MG TAB PO SCH (10:24)
[2020-02-25] MEDS: levETIRAcetam 500 MG TAB PO SCH ×2 (10:24→20:06)
[2020-02-25] MEDS: Multivitamin W/ Minerals 1 TAB PO SCH (10:24)
[2020-02-25] MEDS: Folic Acid 1 MG TAB PO SCH (10:24)
[2020-02-25] MEDS ORDERED: Potassium Phosphate 30 MMOL in Sodium Chloride 0.9% 250 ML 250 ML IVPB SCH (10:30)
[2020-02-25] MEDS ORDERED: Magnesium 2 GM/50 ML 2 GM in Premix Bag 1 BAG IVPB SCH (10:30)
--- NOTE | 2020-02-25 16:30 | PRG ---
DATE OF SERVICE: 02/25/2020 SUBJECTIVE: This patient was seen this morning during rounds. He was lying in bed, resting comfortably. He was easily arousable. He was very minimally tremulous. Nursing reports the patient is cooperative, follows exam and commands. OBJECTIVE: VITAL SIGNS: Temperature 99.4, pulse 85, respirations 18, oxygen saturation 97% on room air, and blood pressure 166/96. GENERAL: Well-appearing middle-aged male, sitting up in bed with no signs of acute distress. PULMONARY: Equal chest rise and fall. Clear breath sounds bilaterally. No signs of acute respiratory distress. CARDIAC: Regular rate and rhythm. GI: Abdomen is soft, nontender, nondistended. EXTREMITIES: 2+ pulses in all extremities. Gross motor and sensation are intact. No significant swelling noted. The patient does have some erythema to his right elbow. Previous right elbow wound has been evaluated by Wound Care and packed. They are concerned about purulent discharge. Upon my evaluation, there was quite a large pocket with some tunneling. Cultures were sent. NEUROLOGIC: GCS is 14 to 15. Pupils equal, round, reactive to light bilaterally. LABORATORY FINDINGS: White count 11.3, hemoglobin 11.8, hematocrit 36.2, and platelets 209. Sodium 137, potassium 3.5, chloride 104, bicarb 14, BUN 10, creatinine 0.59, glucose 103, phosphorus 2.8, and magnesium 1.6. DIAGNOSTIC FINDINGS: X-ray of the right elbow demonstrates soft tissue swelling overlying the posterior olecranon with fractured enthesophyte. ASSESSMENT: 1. Status post left cerebral hemisphere subdural hemorrhage with small left lateral subdural hemorrhage, status post seizure. 2. Delirium tremens. 3. Urinary tract infection, resolved. 4. History of alcohol abuse, seizures with alcohol detox, anxiety, and depression. 5. Right elbow soft tissue infection with abscess drainage. PLAN: Continue current regular diet. Continue physical and occupational therapy. Continue supportive care. Monitor for worsening DTs. He is currently on Serax. We will continue at current dose. We have sent off the culture from the right elbow wound. In the meantime, we have started the patient on oral Bactrim. Replace potassium, phosphorus, and magnesium today. Nursing reports patient is tolerating a diet quite well. Job ID: [id number]
[2020-02-25] MEDS: Sulfameth/Trimethoprim DS 800-160mg TAB PO SCH (20:06)
[2020-02-26] MEDS: cloNIDine 0.2 MG TAB PO SCH ×4 (05:40→21:55)
[2020-02-26] MEDS: Oxazepam 10 MG CAP PO SCH ×4 (05:40→18:30)
[2020-02-26] MEDS: Acetaminophen 325 MG TAB PO SCH ×3 (05:40→18:30)
[2020-02-26 06:04] LABS: Band 1 % (5-11); Hemoglobin 12.2 g/dL (14.0-18.0); Lymphocytes 8 % (21-51); MDiff Complete? YES; Mean Corpuscular HGB CONC 34.9 g/dL (32.0-36.0); Mean Corpuscular Hemoglobin 33.7 pg (27.0-31.0); Mean Corpuscular Volume 96.6 fL (78.0-98.0); Mean Platelet Volume 7.4 fL (7.4-10.4); Monocytes 12 % (0-10); Neutrophil 79 % (42-75); Platelet Count 229 thou/uL (130-400); Platelet Morphology Comment Appears Adequate; RBC Distribution Width 10.9 % (11.5-14.5); Red Blood Cell (RBC) Count 3.63 mill/uL (4.70-6.10); White Blood Cell (WBC) Count 9.7 thou/uL (4.8-10.8)
[2020-02-26] MEDS: Multivitamin W/ Minerals 1 TAB PO SCH (10:01)
[2020-02-26] MEDS: Sulfameth/Trimethoprim DS 800-160mg TAB PO SCH ×2 (10:02→20:37)
[2020-02-26] MEDS: levETIRAcetam 500 MG TAB PO SCH ×2 (10:02→20:37)
[2020-02-26] MEDS: Thiamine 100 MG TAB PO SCH (10:02)
[2020-02-26] MEDS: Folic Acid 1 MG TAB PO SCH (10:02)
--- NOTE | 2020-02-26 16:00 | PRG ---
DATE OF SERVICE: 02/26/2020 SUBJECTIVE: The patient is currently on the surgical floor. He is status post ground level fall, in which he sustained a traumatic brain injury. The patient also has a significant history of alcohol abuse and seizures, and appears to have had a combination of seizures and delirium tremens. The patient did well overnight. Nurses report no issues, report that he was able to eat breakfast this morning, he has not worked with Therapy yet this morning. OBJECTIVE: VITAL SIGNS: Temperature is 99.1, heart rate 71, blood pressure 166/92, respirations 16, and oxygen saturation 96% on room air. GENERAL: The patient is resting comfortably in bed. He was asleep when I entered, but did wake to verbal stimuli and follow simple commands and answer simple questions. RESPIRATIONS: Appear nonlabored. ABDOMEN: Flat, nondistended. EXTREMITIES: The patient moves all extremities freely. The dressing on his right elbow is clean, dry, and intact. LABORATORY FINDINGS: White blood cell count 9.7, hemoglobin 12.2, hematocrit 35.1, platelets 229. There are no radiographs to review. ASSESSMENT AND PLAN: 1. Status post ground level fall resulting in left cerebral hemisphere subdural hemorrhage with small left lateral subdural hemorrhage, status post seizure. 2. History of delirium tremens. 3. Urinary tract infection, resolved. 4. History of alcohol abuse, seizure with alcohol detox, anxiety and depression. 5. Right olecranon bursitis. Microbiology shows no organisms, no growth at 24 hours. PLAN: Continue Bactrim. Supportive care. Encourage physical and occupational therapy. Await placement. Job ID: [id number]
[2020-02-27] MEDS: Acetaminophen 325 MG TAB PO SCH ×5 (00:21→23:30)
[2020-02-27] MEDS: Oxazepam 10 MG CAP PO SCH ×5 (00:21→23:30)
[2020-02-27] MEDS: cloNIDine 0.2 MG TAB PO SCH ×4 (05:08→21:00)
[2020-02-27] MEDS: levETIRAcetam 500 MG TAB PO SCH ×2 (09:54→21:01)
[2020-02-27] MEDS: Thiamine 100 MG TAB PO SCH (09:54)
[2020-02-27] MEDS: Sulfameth/Trimethoprim DS 800-160mg TAB PO SCH ×2 (09:54→21:01)
[2020-02-27] MEDS: Folic Acid 1 MG TAB PO SCH (09:54)
[2020-02-27] MEDS: Multivitamin W/ Minerals 1 TAB PO SCH (09:54)
[2020-02-28] MEDS: cloNIDine 0.2 MG TAB PO SCH ×4 (05:28→21:23)
[2020-02-28] MEDS: Oxazepam 10 MG CAP PO SCH ×3 (05:28→17:54)
[2020-02-28] MEDS: Acetaminophen 325 MG TAB PO SCH ×3 (05:29→17:55)
[2020-02-28] MEDS: Folic Acid 1 MG TAB PO SCH (08:59)
[2020-02-28] MEDS: Sulfameth/Trimethoprim DS 800-160mg TAB PO SCH ×2 (08:59→19:36)
[2020-02-28] MEDS: levETIRAcetam 500 MG TAB PO SCH ×2 (08:59→19:36)
[2020-02-28] MEDS: Multivitamin W/ Minerals 1 TAB PO SCH (08:59)
[2020-02-28] MEDS: Thiamine 100 MG TAB PO SCH (08:59)
[2020-02-28 22:23] VITALS: BP 115/79; TEMP 98.6
== END 2020-02-28 22:00 | DRG 82 ==
LOC: ERS 10:09 → EDBD 10:09 → CCU 11:47 → UNDOADMIN 11:47 → SURG A 02-22 18:47
PROVIDERS: ADMIT Surgery; ATTEND Surgery
PROC: 5A1935Z Respiratory Ventilation, Less than 24 Consecutive Hours (ICD-10-PCS; principal; 2020-02-21)
PROC: 0BH17EZ Insertion of Endotracheal Airway into Trachea, Via Natural or Artificial Opening (ICD-10-PCS; 2020-02-21)
PROC: 0HQ0XZZ Repair Scalp Skin, External Approach (ICD-10-PCS; 2020-02-21)
PROC: 0DH673Z Insertion of Infusion Device into Stomach, Via Natural or Artificial Opening (ICD-10-PCS; 2020-02-21)
DX: S06.6X9A Traumatic subarachnoid hemorrhage with loss of consciousness of unspecified duration, initial encounter (principal); J96.00 Acute respiratory failure, unspecified whether with hypoxia or hypercapnia; E87.2 Acidosis; N39.0 Urinary tract infection, site not specified; G40.509 Epileptic seizures related to external causes, not intractable, without status epilepticus; F10.231 Alcohol dependence with withdrawal delirium; L02.413 Cutaneous abscess of right upper limb; Z20.828 Contact with and (suspected) exposure to other viral communicable diseases; W19.XXXA Unspecified fall, initial encounter; S06.5X9A Traumatic subdural hemorrhage with loss of consciousness of unspecified duration, initial encounter; R40.2432 Glasgow coma scale score 3-8, at arrival to emergency department; F41.9 Anxiety disorder, unspecified; F32.9 Major depressive disorder, single episode, unspecified; S01.01XA Laceration without foreign body of scalp, initial encounter; M70.21 Olecranon bursitis, right elbow; E83.39 Other disorders of phosphorus metabolism; E83.42 Hypomagnesemia; E87.6 Hypokalemia
CPT/HCPCS: 0240U; 12002; 31500; 36415; 36416; 36600; 51702; 70450; 71045; 72125; 80048; 80053; 80306; 80307; 81003; 81015; 82805; 83605; 83690; 83735; 84100; 84146; 84484; 85007; 85025; 85027; 85610; 85730; 86850; 86900; 86901; 87070; 87086; 87205; 93005; 94002; 94003; 96365; 96366; 96367; 96368; 96375; 96376; 99292; G0390; J0360; J0690; J0744; J1630; J1815; J1940; J1953; J2060; J2270; J2704; J3010; J3411; J3475; J3480; J3490; J7042; J7050; P9045

== ENCOUNTER 2020-07-21 14:33 | Outpatient (CLI) | payer BC | END 2020-07-21 14:34 | disposition home or self-care (01) | LOC: BICCT 14:33 | PROVIDERS: ATTEND Surgery | DX: S06.6X9D Traumatic subarachnoid hemorrhage with loss of consciousness of unspecified duration, subsequent encounter (principal) | CPT/HCPCS: 70450 ==

== ENCOUNTER 2020-08-13 17:37 | Inpatient (IN) | payer BC ==
[2020-08-13] MEDS ORDERED: Lorazepam 2 MG/ML VIAL ONE ×2 (17:48→20:08)
[2020-08-13 18:47] LABS: #Lymphocytes 0.3 thou/uL (1.20-3.40); #Monocytes 0.5 thou/uL (0.11-0.59); %Basophils 0.4 % (0.0-1.0); %Lymphocytes 4.9 % (21.0-51.0); %Monocytes 8.5 % (0.0-10.0); %Neutrophils 86.2 % (42.0-75.0); Mean Corpuscular HGB CONC 34.8 g/dL (32.0-36.0); Mean Corpuscular Hemoglobin 33.5 pg (27.0-31.0); Mean Corpuscular Volume 96.3 fL (78.0-98.0); Mean Platelet Volume 6.5 fL (7.4-10.4); Platelet Count 113 thou/uL (130-400); RBC Distribution Width 12.5 % (11.5-14.5); Red Blood Cell (RBC) Count 4.18 mill/uL (4.70-6.10); White Blood Cell (WBC) Count 5.9 thou/uL (4.8-10.8)
[2020-08-13 19:05] LABS: ALT (SGPT) 99 U/L (8-55); AST (SGOT) 174 U/L (5-34); Alkaline Phosphatase 82 U/L (40-110); Anion Gap 22 mmol/L (10-20); BUN (Urea Nitrogen) 12 mg/dL (8.4-25.7); Bilirubin, Total 1.8 mg/dL (0.2-1.2); Calc. Creatinine Clearance 0 mL/min (70-130); Calcium 9.3 mg/dL (7.8-10.44); Carbon Dioxide 19 mmol/L (22-29); Chloride 99 mmol/L (98-107); Globulin 3.1 g/dL (2.4-3.5); Glucose 113 mg/dL (70-105); Protein, Total 7.1 g/dL (6.0-8.3); Sodium 136 mmol/L (136-145)
[2020-08-13 19:06] LABS: Platelet Morphology Comment Appears Decreased; RBC Morphology Normal
[2020-08-13] MEDS ORDERED: levETIRAcetam in NS 1,500 MG in Premix Bag 1 BAG IVPB SCH (20:15)
[2020-08-13] MEDS ORDERED: chlordiazePOXIDE HCl 25 MG CAP ONE (21:08)
[2020-08-13] MEDS ORDERED: Senokot S 8.6-50 MG TAB PO PRN (21:50)
[2020-08-13] MEDS: Sodium Chloride 0.9% 1,000 ML IV SCH (23:13)
[2020-08-14] MEDS: Multivitamins, Adult 10 ML, Folic Acid 1 MG, Thiamine HCl 100 MG in Dextrose 5 %-0.45 %... IV SCH ×2 (00:12→21:28)
[2020-08-14 00:50] VITALS: BMI 23.5
[2020-08-14 05:08] LABS: #Basophils 0.1 thou/uL (0.0-0.2); #Lymphocytes 0.8 thou/uL (1.20-3.40); #Monocytes 0.9 thou/uL (0.11-0.59); #Neutrophils 4.7 thou/uL (1.40-6.50); %Basophils 0.8 % (0.0-1.0); %Eosinophils 0.2 % (0.0-10.0); %Lymphocytes 11.9 % (21.0-51.0); %Monocytes 14.6 % (0.0-10.0); %Neutrophils 72.5 % (42.0-75.0); Hemoglobin 13.6 g/dL (14.0-18.0); Mean Corpuscular HGB CONC 34.6 g/dL (32.0-36.0); Mean Corpuscular Hemoglobin 33.4 pg (27.0-31.0); Mean Corpuscular Volume 96.7 fL (78.0-98.0); Mean Platelet Volume 6.8 fL (7.4-10.4); Platelet Count 101 thou/uL (130-400); RBC Distribution Width 12.3 % (11.5-14.5); Red Blood Cell (RBC) Count 4.06 mill/uL (4.70-6.10); White Blood Cell (WBC) Count 6.4 thou/uL (4.8-10.8)
[2020-08-14 05:29] LABS: ALT (SGPT) 74 U/L (8-55); AST (SGOT) 106 U/L (5-34); Albumin 3.5 g/dL (3.5-5.0); Alkaline Phosphatase 70 U/L (40-110); Anion Gap 19 mmol/L (10-20); BUN (Urea Nitrogen) 11 mg/dL (8.4-25.7); Bilirubin, Total 2.2 mg/dL (0.2-1.2); Calc. Creatinine Clearance 125 mL/min (70-130); Calcium 8.7 mg/dL (7.8-10.44); Carbon Dioxide 21 mmol/L (22-29); Chloride 97 mmol/L (98-107); Globulin 2.7 g/dL (2.4-3.5); Glucose 104 mg/dL (70-105); Potassium 3.4 mmol/L (3.5-5.1); Protein, Total 6.2 g/dL (6.0-8.3); Sodium 134 mmol/L (136-145)
[2020-08-14] MEDS: Enoxaparin Sodium 40 MG/0.4 ML SYRINGE SC SCH (08:43)
[2020-08-14] MEDS: chlordiazePOXIDE HCl 25 MG CAP PO SCH ×3 (08:43→21:28)
[2020-08-14] MEDS: levETIRAcetam 500 MG TAB PO SCH ×2 (08:43→21:28)
[2020-08-14] MEDS: Sodium Chloride 0.9% 1,000 ML IV SCH (12:56)
[2020-08-14 13:14] LABS: SARS-CoV-2 PCR by NAA Not Detected (NotDetected)
[2020-08-14] MEDS: Lorazepam 2 MG/ML VIAL SLOW IVP PRN (22:54)
[2020-08-15] MEDS ORDERED: Lorazepam 2 MG/ML VIAL SLOW IVP SCH (00:15)
[2020-08-15] MEDS: Sodium Chloride 0.9% 1,000 ML IV SCH ×2 (00:16→14:00)
[2020-08-15] MEDS ORDERED: Metoprolol Tartrate 5 MG/5 ML VIAL IVP SCH (01:45)
[2020-08-15] MEDS: Lorazepam 2 MG/ML VIAL SLOW IVP PRN ×5 (02:55→21:57)
[2020-08-15] MEDS: levETIRAcetam 500 MG TAB PO SCH ×2 (07:59→20:36)
[2020-08-15] MEDS: Enoxaparin Sodium 40 MG/0.4 ML SYRINGE SC SCH (07:59)
[2020-08-15] MEDS: chlordiazePOXIDE HCl 25 MG CAP PO SCH ×3 (07:59→20:36)
[2020-08-15] MEDS: Multivitamins, Adult 10 ML, Folic Acid 1 MG, Thiamine HCl 100 MG in Dextrose 5 %-0.45 %... IV SCH (15:36)
[2020-08-16] MEDS ORDERED: Lorazepam 2 MG/ML VIAL SLOW IVP SCH (01:15)
[2020-08-16] MEDS: Lorazepam 2 MG/ML VIAL SLOW IVP PRN ×2 (03:10→15:51)
[2020-08-16] MEDS: chlordiazePOXIDE HCl 25 MG CAP PO SCH ×3 (08:24→21:21)
[2020-08-16] MEDS: levETIRAcetam 500 MG TAB PO SCH ×2 (08:24→21:21)
[2020-08-16] MEDS: Enoxaparin Sodium 40 MG/0.4 ML SYRINGE SC SCH (08:24)
[2020-08-16] MEDS: Sodium Chloride 0.9% 1,000 ML IV SCH (13:26)
[2020-08-16] MEDS: Multivitamins, Adult 10 ML, Folic Acid 1 MG, Thiamine HCl 100 MG in Dextrose 5 %-0.45 %... IV SCH (15:51)
[2020-08-17] MEDS: Lorazepam 2 MG/ML VIAL SLOW IVP PRN (00:15)
[2020-08-17 06:18] LABS: Eosinophils 4 % (0-10); Hemoglobin 14.3 g/dL (14.0-18.0); Lymphocytes 40 % (21-51); MDiff Complete? YES; Mean Corpuscular HGB CONC 33.2 g/dL (32.0-36.0); Mean Corpuscular Volume 96.3 fL (78.0-98.0); Monocytes 12 % (0-10); Neutrophil 38 % (42-75); Platelet Count 131 thou/uL (130-400); Platelet Morphology Comment Appears Adequate; RBC Distribution Width 12.1 % (11.5-14.5); RBC Morphology Normal; Reactive Lymphocytes 6 % (0-10); Red Blood Cell (RBC) Count 4.46 mill/uL (4.70-6.10); White Blood Cell (WBC) Count 4.8 thou/uL (4.8-10.8)
[2020-08-17 06:23] LABS: Anion Gap 14 mmol/L (10-20); BUN (Urea Nitrogen) 5 mg/dL (8.4-25.7); Calc. Creatinine Clearance 147 mL/min (70-130); Calcium 9.1 mg/dL (7.8-10.44); Carbon Dioxide 21 mmol/L (22-29); Chloride 107 mmol/L (98-107); Glucose 94 mg/dL (70-105); Sodium 139 mmol/L (136-145)
[2020-08-17 06:28] LABS: Potassium 2.9 mmol/L (3.5-5.1)
[2020-08-17] MEDS: Sodium Chloride 0.9% 1,000 ML IV SCH ×2 (09:41→09:49)
[2020-08-17] MEDS: levETIRAcetam 500 MG TAB PO SCH (09:43)
[2020-08-17] MEDS: chlordiazePOXIDE HCl 25 MG CAP PO SCH (09:44)
[2020-08-17] MEDS: Enoxaparin Sodium 40 MG/0.4 ML SYRINGE SC SCH (09:45)
[2020-08-17] MEDS ORDERED: Potassium Chloride 20 MEQ TAB PO SCH (10:30)
[2020-08-17 15:31] VITALS: BP 130/76
[2020-08-17 15:32] VITALS: TEMP 97.9
== END 2020-08-17 19:20 | disposition home or self-care (01) | DRG 897 ==
LOC: ERS 17:37 → 2NO 21:04
PROVIDERS: ADMIT Internal Medicine; ATTEND Internal Medicine
PROC: HZ2ZZZZ Detoxification Services for Substance Abuse Treatment (ICD-10-PCS; principal; 2020-08-17)
DX: F10.131 Alcohol abuse with withdrawal delirium (principal); G40.909 Epilepsy, unspecified, not intractable, without status epilepticus; F32.9 Major depressive disorder, single episode, unspecified; Z20.822 Contact with and (suspected) exposure to COVID-19; R94.5 Abnormal results of liver function studies; I10 Essential (primary) hypertension
CPT/HCPCS: 36415; 70450; 80048; 80053; 82140; 84146; 85025; 95712; 95819; 95957; 96365; 96375; 96376; J1650; J1953; J2060; J3411; J7042; U0003; U0005

== ENCOUNTER 2021-04-19 19:59 | Emergency (ER) | payer BC | END 2021-04-19 20:48 | LOC: ERS 19:59 | DX: Z02.89 Encounter for other administrative examinations (principal); I10 Essential (primary) hypertension; F17.210 Nicotine dependence, cigarettes, uncomplicated | CPT/HCPCS: 99283 ==